=== PATIENT | male | born 2000 | race African-American/Black ===

== ENCOUNTER 2023-04-04 16:22 | Outpatient (CLI) | payer OTHER, SELFPAY | END 2023-04-04 16:23 | disposition home or self-care (01) | LOC: AMB 04-08 22:13 | PROVIDERS: Visit Provider Emergency Medicine | DX: R41.82 Altered mental status, unspecified (principal) | CPT/HCPCS: A0425; A0429 ==

== ENCOUNTER 2023-04-04 16:37 | Emergency (ER) | payer OTHER, SELFPAY ==
[2023-04-04 16:43] VITALS: BP 144/93; PULSE 108; RESP 18; TEMP 37; O2SAT 100; BMI 25.1
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
[2023-04-04 17:39] LABS: Basophils Absolute Auto 0.02 K/uL (0.00-0.30); Basophils Percent Auto 0.3 % (0.0-3.0); Hematocrit 44.5 % (37.0-53.0); Hemoglobin* 14.8 gm/dL (13.5-17.5); Lymphocytes Absolute Auto 1.66 K/uL (0.90-2.90); Lymphocytes Percent Auto 25.7 % (20-44); Mean Corpuscular HGB Conc 33 gm/dL (32-36); Mean Corpuscular Hemoglobin 29 pg (26-34); Mean Corpuscular Volume 88 fL (80-100); Monocytes Percent Auto 11.5 % (0.0-11.0); Neutrophils Absolute Auto 4.03 K/uL (1.7-7.0); Neutrophils Percent Auto 62.5 % (42.0-72.0); Platelet Count* 243 K/uL (140-440); RDW Coefficient of Variation % 12.4 % (11.5-15.5); Red Blood Count 5.04 m/uL (4.30-5.90); White Blood Count* 6.45 K/uL (4.50-11.00)
[2023-04-04 17:48] LABS: Slide Review Reflex No
[2023-04-04 17:56] LABS: Chloride* 104 mmol/L (96-114); Potassium* 3.7 mmol/L (3.6-5.1); Sodium* 136 mmol/L (135-149)
[2023-04-04 17:59] LABS: Anion Gap 7 mEq/L (7-15); Blood Urea Nitrogen* 12 mg/dL (5-24); Calcium* 9.8 mg/dL (8.4-10.6); Carbon Dioxide* 25 mmol/L (20-32); Creatinine* 1.2 mg/dL (0.5-1.5); Est. Creatinine Clearance* 107.78; Estimated Glomerular Filt Rate 89 ml/min; Glucose* 100 mg/dL (60-115)
[2023-04-04 18:07] LABS: Amphetamine Screen Urine Negative (Negative); Barbiturate Screen Urine Negative (Negative); Benzodiazepines Screen Urine Negative (Negative); Cannabinoid Screen Urine Negative (Negative); Cocaine Screen Urine Negative (Negative); Methadone Screen Urine Negative (Negative); Methamphetamines Screen Urine Negative (Negative); Opiate Screen Urine Negative (Negative); Oxycodone Screen Urine Negative (Negative); Phencyclidine Screen Urine Negative (Negative); Tricyclic Antidepressant Urine Negative (Negative)
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
== END 2023-04-04 18:59 | disposition home or self-care (01) ==
PROVIDERS: Emergency Provider Student in an Organized Health Care Education/Training Program
DX: Z71.1 Person with feared health complaint in whom no diagnosis is made (principal)
CPT/HCPCS: 36415; 80048; 80306; 85025; 99283